=== PATIENT | male | born 1975 | race African-American/Black ===

== ENCOUNTER 2019-10-20 09:55 | Emergency (ER) | payer MEDICARE, OTHER ==
[2019-10-20] MEDS ORDERED: Sterile Water Irrigation 250 ML BOT ONE (11:48)
== END 2019-10-20 11:18 | disposition home or self-care (01) ==
LOC: MADERS 09:55
DX: T54.91XA Toxic effect of unspecified corrosive substance, accidental (unintentional), initial encounter (principal); H10.211 Acute toxic conjunctivitis, right eye; Y92.009 Unspecified place in unspecified non-institutional (private) residence as the place of occurrence of the external cause; F17.210 Nicotine dependence, cigarettes, uncomplicated; F32.9 Major depressive disorder, single episode, unspecified
CPT/HCPCS: 99282

== ENCOUNTER 2023-11-01 07:44 | Emergency (ER) | payer MEDICARE, MEDICAID ==
[2023-11-01] MEDS ORDERED: Boostrix 0.5 ML (Tdap) VIAL (>/=7 yrs of age) ONE (08:13)
== END 2023-11-01 12:12 | disposition home or self-care (01) ==
LOC: MADERS 07:44
DX: S81.851A Open bite, right lower leg, initial encounter (principal); F17.210 Nicotine dependence, cigarettes, uncomplicated; Z23 Encounter for immunization; W54.0XXA Bitten by dog, initial encounter
CPT/HCPCS: 90471; 90715